=== PATIENT | female | born 1970 ===

== ENCOUNTER 2023-12-20 17:34 | Emergency (ER) | payer BC ==
[~2023-12-20] VITALS: Ht 157.5 cm; Wt 45.4 kg
[2023-12-20 18:23] LABS: BASOPHILS ABSOLUTE AUTO 0.12 K/mm3 (0.00-0.23); BASOPHILS PERCENT AUTO 1 % (0-2); EOSINOPHILS PERCENT AUTO 1 % (0-6); Hematocrit 26.1 % (33.0-51.0); Hemoglobin 8.7 g/dL (11.5-16.0); IMMATURE GRAN ABSOLUTE AUTO 0.58 K/mm3 (0.00-0.10); IMMATURE GRAN PERCENT AUTO 3 % (0-1); LYMPHOCYTES ABSOLUTE AUTO 3.68 K/mm3 (0.84-5.20); LYMPHOCYTES PERCENT AUTO 18 % (21-46); MONOCYTES ABSOLUTE AUTO 1.02 K/mm3 (0.16-1.47); MONOCYTES PERCENT AUTO 5 % (4-13); Mean Corpuscular HGB 34.9 pg (26.0-34.0); Mean Corpuscular HGB Conc 33.3 g/dL (31.5-36.5); Mean Corpuscular Volume 105 fL (80-100); Mean Platelet Volume 10.9 fL (9.1-12.4); NEUTROPHILS ABSOLUTE AUTO 14.48 K/mm3 (1.96-9.15); NEUTROPHILS PERCENT AUTO 73 % (41-73); Platelet Count 418 K/mm3 (150-400); RDW Coefficient Variation 15.9 % (11.7-14.2); RDW Standard Deviation 60.9 fL (35.1-46.3); Red Blood Cell Count 2.49 M/mm3 (3.80-5.20); White Blood Cell Count 19.98 K/mm3 (4.00-11.30)
[2023-12-20 18:46] LABS: Albumin/Globulin Ratio 0.4 (0.8-1.8); Bilirubin, Total 0.8 mg/dL (0.1-1.0); Calcium, Blood 8.1 mg/dL (8.5-10.1); Creatinine, Blood 0.75 mg/dL (0.40-1.00); Globulin, Blood 5.6 g/dL (2.2-4.0); Potassium, Blood 4.3 mmol/L (3.5-5.5); Total Protein, Blood 7.6 g/dL (6.4-8.2)
[2023-12-20] MEDS ORDERED: NS 1,000 ML IV ONE (20:17)
[2023-12-20] MEDS ORDERED: NS 1,000 ML IV SCH (20:40)
[2023-12-20] MEDS ORDERED: Ondansetron HCl 2 MG / ML 2ML Vial IV ONE (20:40)
[2023-12-20 21:47] LABS: Influenza A, PCR NEGATIVE (NEGATIVE); Influenza B, PCR NEGATIVE (NEGATIVE); Resp Syncytial Virus, PCR NEGATIVE (NEGATIVE); SARS-Cov-2 (COVID-19) PCR, MMC NEGATIVE (NEGATIVE)
[2023-12-20 21:55] LABS: Source, Urine Clean Catch
[2023-12-20 21:58] LABS: Appearance, Urine Turbid (Clear); Bilirubin, Urine Neg (Neg); Blood, Urine 4+ (Neg); Color, Urine Yellow (P-Yellow); Glucose Qualitative, Urine 2+ (Neg); Ketones, Urine Neg (Neg); Leukocyte Esterase, Urine 3+ (Neg); Nitrite, Urine Neg (Neg); Protein, Urine 3+ (Neg); Specific Gravity, Urine 1.015 (1.003-1.022); Urobilinogen, Urine NORM (Normal)
[2023-12-20 22:06] LABS: White Blood Cells, Urine TNTC /hpf (0-5)
[2023-12-20 22:07] LABS: Bacteria Many /hpf; Squamous Epithelial Cells Few /hpf (Few)
[2023-12-20 22:45] VITALS: BP 93/70
[2023-12-20] MEDS ORDERED: Cephalexin Monohydrate 500 MG Cap PO ONE (22:45)
[2023-12-20] MEDS ORDERED: CEPH500 PO (22:48)
== END 2023-12-21 01:29 | disposition home or self-care (01) ==
LOC: ER 17:34
PROVIDERS: Student in an Organized Health Care Education/Training Program
DX: R10.84 Generalized abdominal pain (principal); R30.0 Dysuria; F10.90 Alcohol use, unspecified, uncomplicated; E11.9 Type 2 diabetes mellitus without complications; Z88.5 Allergy status to narcotic agent
CPT/HCPCS: 0241U; 74177; 80053; 81001; 85025; 87077; 87086; 87186; 93005; 93010; 96361; 96374; 99284-25; A9270; J2405; J7030; Q9967